=== PATIENT | female | born 1930 | race Hispanic/Latino ===

== ENCOUNTER 2017-10-03 12:15 | Inpatient (IN) | payer MEDICARE ==
[2017-10-03 13:12] LABS: BASO # 0.02 K/mm3 (0.0-2.0); BASO % 0.2 % (0.0-3.0); EOS % 0.1 % (1.5-5.0); GRAN # 8.95 (1.4-6.5); GRAN % 78.9 % (50.0-68.0); HEMATOCRIT 44.5 % (36.0-48.0); LYMPH # 1.6 (1.2-3.4); LYMPH % 14.2 % (22.0-35.0); MEAN CELL VOLUME 82.4 fl (80.0-105.0); MEAN CORPUSCULAR HEMOGLOBIN 28.1 pg (25.0-35.0); MEAN CORPUSCULAR HGB CONC 34.2 g/dl (31.0-37.0); MEAN PLATELET VOLUME 9.4 fl (7.0-11.0); MONO # 0.8 (0.1-0.6); MONO % 6.6 % (1.0-6.0); RED CELL DISTRIBUTION WIDTH 13.8 % (11.5-14.5); WHITE BLOOD COUNT 11.3 10^3/ul (4.5-11.0)
--- NOTE | 2017-10-03 13:23 | ED PDOC ---
Arrival/HPI - General Chief Complaint: Trauma Time Seen by Provider: 10/03/17 12:22 - History of Present Illness Narrative History of Present Illness (Text): 86 year old female with PMhx of Pre diabetes, HLD, Arthritis, urinary incontinence, and anxiety presents with unwitnessed fall. Patient can't remember the mechanism of the fall. She states she got up out of bed then fell. She does admit to hitting the back of her head when she fell but is not tender in that region. HPI and ROS difficult to obtain due to patient's confusion and issues with memory. Additional information was obtained from Son, Daughter, and Daughter in law. Per patient's children, the patient's leg have been progressively weak. Patient is normally ambulatory with a walker, but has been slowing down as of recent. Per children, patient has also seemed slightly more confused than usual. When asked about the fall she stated that she had seizure. Patient did not mention seizure during interview nor does she have history of seizures. She continues to mention her anxiety throughout the interview. ROS POSITIVES: Leg weakness NEGATIVES: Fevers, chills, Headache, Dizziness, blurry vision, chest pain, palpitations, SOB, abdominal pain, n/v/d, constipation, urinary symptoms, PMHx: Pre diabetes, HLD, Arthritis, urinary incontinence, anxiety. PSHx: x 3 Allergies: NKDA Social: Denies tobacco, alcohol, or any ilicit drug use Hos: Denies FamHx: Gout- Father, Breast CA - Mother Meds: Reviewed Time/Duration: 4-6 hours Symptom Onset: Sudden Symptom Course: Unchanged Activities at Onset: Other Context: Standing Past Medical History - Provider Review Nursing Documentation Reviewed: Yes - Cardiac Hx Hypertension: Yes - Endocrine/Metabolic Hx Hypothyroidism: Yes - Psychiatric Hx Anxiety: Yes Hx Substance Use: No - Surgical History Hx Section: Yes Family/Social History - Physician Review Nursing Documentation Reviewed: Yes Family/Social History: Neoplasm/Cancer, Other (Gout) Smoking Status: Never Smoked Hx Alcohol Use: No Hx Substance Use: No Allergies/Home Meds Allergies/Adverse Reactions: Allergies No Known Allergies Allergy (Verified 10/03/17 12:41) Home Medications: Home Meds Medication Instructions Recorded Confirmed Alprazolam [Xanax] 0.5 mg PO DAILY 10/03/17 10/03/17 Colesevelam HCl [Welchol] 625 mg PO DAILY 10/03/17 10/03/17 Levothyroxine [Synthroid] 75 mcg PO DAILY 10/03/17 10/03/17 Review of Systems - Physician Review All systems were reviewed & negative as marked: Yes (As per HPI) - Review of Systems Respiratory: Normal. absent: SOB Cardiovascular: Normal. absent: Chest Pain Physical Exam - Physical Exam Physical Exam Limitations: Other (Confused ) Vital Signs Reviewed: Yes Vital Signs Temp Pulse Resp BP Pulse Ox 10/03/17 15:34 93 H 18 150/92 H 99 10/03/17 12:15 97.8 F 112 H 18 175/87 H 99 Temperature: Afebrile Blood Pressure: Hypertensive Pulse: Tachycardic Respiratory Rate: Normal Appearance: Positive for: Non-Toxic Pain Distress: None Mental Status: Positive for: Confused - Systems Exam Head: Present: Atraumatic, Normocephalic. No: Tenderness, Contusion, Swelling, Ecchymosis, Abrasion Pupils: Present: PERRL Extroacular Muscles: Present: EOMI Conjunctiva: Present: Normal Ears: Present: Normal Mouth: Present: Moist Mucous Membranes Neck: No: MIDLINE TENDERNESS, JVD, Bruit Respiratory/Chest: Present: Clear to Auscultation. No: Respiratory Distress, Accessory Muscle Use, Wheezes, Rales, Rhonchi, Tachypneic Cardiovascular: No: Murmurs, Normal S1, S2 (S3 Heart Sound ) Abdomen: Present: Normal Bowel Sounds. No: Tenderness, Distention Upper Extremity: No: Cyanosis, Edema Lower Extremity: Present: Other (Legs dry and scaly b/l ). No: Edema, CALF TENDERNESS, Cyanosis Neurological: Present: GCS=15, Motor Func Grossly Intact. No: Memory Normal Skin: Present: Other (Diffuse Senile Keratosis and Purpura. ) Lymphatic: Present: Cervical Adenopathy Psychiatric: Present: Alert Medical Decision Making ED Course and Treatment: 86 year old female with PMHx of pre-diabetes, HLD, Arthritis, Urinary Incontinence, and anxiety presents with syncopal episode. --EKG: Shows Sinus tachycardia, RBBB, Left Ant. Fascicular block, LVH with repolarization abnormality --BNP --Cardiac Iso --CK MB% --Magnesium --PT/PTT --UA --B/L pelvic Xray --CXR --Head CT w/o Contrast --Reassess and Disposition Reassessment --CBC: 11.3 WBC Gran # 8.95 Roane # 0.8 --CMP Mg - WNL AST/ALT = 47/41 --Total CK elevated at 494 --CK-MB: Elevated at 4.4 --Troponin 0.04 (Negative) -- BNP = 722 --Total Protein Elevated at 9.0 --B/L pelvic Xray: No fractures or displacement. --CXR: No acute disease --Head CT w/o Contrast: No active Disease --Attending discussed patient with Dr. Metcalf(GI) --Admit to Med/Surg Reassessment Condition: Re-examined, Improving,but remains with symptoms ( Patient had one episode of Non-bloody, Bilious vomiting) - Lab Interpretations Lab Results: 10/03/17 13:00 10/03/17 13:00 Lab Results 10/03/17 13:00: PT 12.1, INR 1.10 H, APTT 30.1 10/03/17 13:00: Magnesium 1.8, Lactate Dehydrogenase 480, Total Creatine Kinase 494 H, CK-MB (CK-2) 4.4 H, CK-MB (CK-2) % Cancelled, Troponin I 0.04, NT-Pro-B Natriuret Pep 722 H 10/03/17 13:00: Sodium 141, Potassium 3.9, Chloride 105, Carbon Dioxide 23, Anion Gap 17, BUN 26 H, Creatinine 1.0, Est GFR ( Amer) > 60, Est GFR ( Non-Af Amer) 52, Random Glucose 132 H, Calcium 10.8 H, Total Bilirubin 0.9, AST 47 H, ALT 41, Alkaline Phosphatase 97, Total Protein 9.0 H, Albumin 4.8, Globulin 4.2, Albumin/Globulin Ratio 1.1 10/03/17 13:00: WBC 11.3 H, RBC 5.40, Hgb 15.2, Hct 44.5, MCV 82.4, MCH 28.1, MCHC 34.2, RDW 13.8, Plt Count 308, MPV 9.4, Gran % 78.9 H, Lymph % (Auto) 14.2 L, Roane % (Auto) 6.6 H, Eos % (Auto) 0.1 L, Baso % (Auto) 0.2, Gran # 8.95 H, Lymph # 1.6, Roane # 0.8 H, Eos # 0.0, Baso # 0.02 I have reviewed the lab results: Yes - RAD Interpretation Radiology Orders: 10/03/17 13:18 HEAD W/O CONTRAST [CT] Stat 10/03/17 13:23 CHEST ONE VIEW [RAD] Stat 10/03/17 14:13 PELVIS ONE VIEW [RAD] Stat Blankbook Forwarder: ED Physician, Radiologist - EKG Interpretation Interpreted by ED Physician: Yes Disposition/Present on Arrival - Present on Arrival Any Indicators Present on Arrival: No History of DVT/PE: No History of Uncontrolled Diabetes: No Urinary Catheter: No History of Decub. Ulcer: No History Surgical Site Infection Following: None - Disposition Have Diagnosis and Disposition been Completed?: Yes Diagnosis: Atypical syncope Disposition Time: 16:43 Patient Plan: Admission Patient Problems: Current Active Problems Problem Status Onset Atypical syncope Acute Condition: STABLE Discharge Instructions (ExitCare): Syncope (ED) Referrals: Tanna Cruz DO [Primary Care Provider] - Follow up with primary Forms: [employer] (Lithuanian)
[2017-10-03 13:24] LABS: ALB/GLOB RATIO 1.1 (1.1-1.8); ALKALINE PHOSPHATASE 97 U/L (38-126); ALT/SGPT 41 U/L (7-56); AST/SGOT 47 U/L (14-36); BILIRUBIN,TOTAL 0.9 mg/dL (0.2-1.3); BLOOD UREA NITROGEN 26 mg/dL (7-21); CALCIUM 10.8 mg/dL (8.4-10.5); CARBON DIOXIDE 23 mmol/L (21-33); CHLORIDE 105 mmol/L (98-107); GFR AFRICAN-AMERICAN > 60; GLUCOSE,RANDOM 132 mg/dL (70-110); POTASSIUM 3.9 mmol/L (3.6-5.0); SODIUM 141 mmol/L (132-148)
[2017-10-03 13:46] LABS: MAGNESIUM 1.8 mg/dL (1.7-2.2)
[2017-10-03 13:53] LABS: TROPONIN I 0.04 ng/mL
[2017-10-03 14:01] LABS: INR 1.1 (0.93-1.08); PARTIAL THROMBOPLASTIN TIME 30.1 Seconds (25.1-36.5)
--- NOTE | 2017-10-03 14:55 | CT ---
PROCEDURE: CT HEAD WITHOUT CONTRAST. HISTORY: FALL COMPARISON: None available. TECHNIQUE: Axial computed tomography images were obtained through the head/brain without intravenous contrast. Radiation dose: Total exam DLP = 869.96 mGy-cm. This CT exam was performed using one or more of the following dose reduction techniques: Automated exposure control, adjustment of the mA and/or kV according to patient size, and/or use of iterative reconstruction technique. FINDINGS: HEMORRHAGE: No intracranial hemorrhage. BRAIN: Diffuse atrophy with prominence of the ventricles and sulci noted. No mass effect or edema. Richard-white matter differentiation appears intact. Please note that MRI with diffusion imaging is more sensitive in the detection of acute ischemic event. VENTRICLES: No hydrocephalus. CALVARIUM: Unremarkable. PARANASAL SINUSES: Unremarkable as visualized. No significant inflammatory changes. MASTOID AIR CELLS: Unremarkable as visualized. No inflammatory changes. OTHER FINDINGS: None. IMPRESSION: No acute intracranial pathology identified.
[2017-10-03 16:42] LABS: PH,URINE 5.5 (4.7-8.0); URINE BILIRUBIN SMALL (NEGATIVE); URINE BLOOD LARGE (NEGATIVE); URINE GLUCOSE (UA) NEGATIVE (NEGATIVE); URINE KETONE 15 mg/dL (NEGATIVE); URINE LEUKOCYTE ESTERASE MODERATE Leu/uL (NEGATIVE); URINE PROTEIN 100 mg/dL (<30 mg/dL); URINE UROBILINOGEN 0.2 E.U./dL (<1 E.U./dL)
--- NOTE | 2017-10-03 16:48 | RAD ---
HISTORY: Fall COMPARISON: None available. TECHNIQUE: Chest, one view. FINDINGS: LUNGS: Biapical pleural thickening. No focal consolidation. Please note that chest x-ray has limited sensitivity for the detection of pulmonary masses. PLEURA: No significant pleural effusion identified. No definite pneumothorax . CARDIOVASCULAR: Heart size appears within normal limits. Ectatic aorta. Atherosclerotic calcifications. OSSEOUS STRUCTURES: Degenerative changes. VISUALIZED UPPER ABDOMEN: Elevation/ eventration of the right hemidiaphragm. OTHER FINDINGS: None. IMPRESSION: Biapical pleural thickening. Atherosclerotic calcifications of the aorta.
--- NOTE | 2017-10-03 16:50 | RAD ---
PROCEDURE: Radiographs of the pelvis. HISTORY: fall COMPARISON: None available. FINDINGS: Emanation limited by habitus. BONES: No acute displaced fracture. JOINTS: No dislocation. The sacroiliac joints appear intact. The pubic symphysis appears unremarkable. OTHER FINDINGS: No significant joint effusion appreciated. Soft tissues appear unremarkable. No evidence of radiopaque foreign body. Pelvic calcifications, likely phleboliths. IMPRESSION: No acute displaced fracture, dislocation, or significant joint effusion identified. If symptoms persist, or if there is continued clinical concern, x-ray follow-up in 7-10 days should be considered.
[2017-10-03 17:02] LABS: URINE APPEARANCE SL CLOUDY (CLEAR); URINE COLOR YELLOW (YELLOW)
[2017-10-03 17:05] LABS: URINE BACTERIA MANY (NEG); URINE EPITHELIAL CELLS 0 - 2 /hpf (0-5); URINE RBC TNTC /hpf (0-2); URINE WBC TNTC /hpf (0-6)
[2017-10-03] MEDS ORDERED: cefTRIAXone 2 GM IN NS 2 GM/100 ML BAG IVPB STA (17:10)
[2017-10-03 21:24] VITALS: BMI 24.9
[2017-10-03] MEDS ORDERED: Influenza Vaccine 60 mcg/0.5 mL SYR (4YR UP) IM ONE (21:25)
[2017-10-03] MEDS ORDERED: Pneumococcal 23-Valent Vaccine IM ONE (21:25)
--- NOTE | 2017-10-03 21:42 | CARD ---
APPROVED REPORT EKG Measurement Heart [id number] <Conclusion> Sinus tachycardia Right bundle branch block Left anterior fascicular block Bifascicular block Left ventricular hypertrophy with repolarization abnormality Cannot rule out Septal infarct, age undetermined Abnormal ECG
[2017-10-04] MEDS: Levothyroxine 75 MCG TAB PO SCH (09:00)
[2017-10-04] MEDS: cefTRIAXone 1 gm 1 GM/100 ML BAG IVPB SCH (10:50)
--- NOTE | 2017-10-04 11:08 | CP.PCM.CON ---
<Etelvina Archibald - Last Filed: 10/04/17 11:04> History of Present Illness - History of Present Illness History of Present Illness: 86 year old female with PMhx of Pre diabetes, HLD, Arthritis, urinary incontinence, and anxiety presents with unwitnessed fall, seen at bedside after podiatry consultation. Patient is accompanied by daughter and states that the patient fell at home yesterday and was brought to the ED. Patient's daughter states that the patient has no pain in her feet. She denies any numbness, burning or tingling in her feet. Patient appears in NAD. Patient denies n/d/c/v/ sob. Review of Systems - Constitutional Constitutional: As Per HPI Past Patient History - Past Social History Smoking Status: Never Smoked - CARDIAC Hx Hypercholesterolemia: Yes Hx Hypertension: Yes - ENDOCRINE/METABOLIC Hx Endocrine Disorders: Yes (pre diabetes) Hx Hypothyroidism: Yes - INTEGUMENTARY Other/Comment: multiple age spots and moles chest, round 1cm growth to r cheek, redness to left cheek left side of face and left neck, dry discolored skin to b/ l arms, bke dry flaky skin toenails on both feet long thick and curled, red dry skin to buttocks - MUSCULOSKELETAL/RHEUMATOLOGICAL Hx Falls: Yes (fell this am) - GENITOURINARY/GYNECOLOGICAL Hx Incontinence: Yes - PSYCHIATRIC Hx Substance Use: No - SURGICAL HISTORY Hx Surgeries: Yes (c section x3) Meds Allergies/Adverse Reactions: Allergies Allergy/AdvReac Type Severity Reaction Status Date / Time No Known Allergies Allergy Verified 10/03/17 12:41 - Medications Medications: Current Medications Alprazolam (Xanax) 0.5 mg PO DAILY PRN; Protocol PRN Reason: Anxiety Last Admin: 10/04/17 08:18 Dose: 0.5 mg Ceftriaxone Sodium (Rocephin 1 Gram Ivpb (D5w)) 1 gm in 100 mls @ 200 mls/hr IVPB DAILY AUDIE PRN Reason: Protocol Levothyroxine Sodium (Synthroid) 75 mcg PO DAILY AUDIE Last Admin: 10/04/17 09:00 Dose: 75 mcg Colesevelam 625 Mg 625 mg PO BRK AUDIE Physical Exam - Constitutional Appears: Well, Non-toxic, No Acute Distress - Extremities Exam Additional comments: Vasc: DP 2/4, PT 14 b/l, TG wnl, CFT < 3 sec to all digits neuro: grossly diminished derm: nails are elongated and thickened x 10, no edema, no erythema, varicosities and telangectasias noted bilaterally to dorsal feet, no open lesions, no hyperkeratotic lesions, no ascending cellulitis, no acute clinical signs of infection ortho: mild pain on palpation to nails x 10 - Neurological Exam Neurological exam: Alert, Oriented x3 Results - Vital Signs Recent Vital Signs: Last Vital Signs Temp 97.9 F 10/04/17 06:00 Pulse 89 10/04/17 06:00 Resp 19 10/04/17 06:00 BP 158/88 H 10/04/17 06:00 Pulse Ox 98 10/04/17 06:00 - Labs Result Diagrams: 10/03/17 13:00 10/03/17 13:00 Assessment & Plan - Assessment and Plan (Free Text) Assessment: 86 y/o female seen at bedside regarding painful elongated toenails Plan: patient seen and evaluated at bedside discussed in detail with attending Dr. Arthur nail debridement to be performed tomorrow educated patient importance of glucose control, diabetic foot care patient demonstrated understanding of treatment plan podiatry will continue to monitor while patient remains in house <Devin Arthur - Last Filed: 10/08/17 08:52> Results - Vital Signs Recent Vital Signs: Last Vital Signs Temp 97.5 F L 10/06/17 07:30 Pulse 73 10/06/17 10:03 Resp 20 10/06/17 07:30 BP 138/58 L 10/06/17 10:03 Pulse Ox 96 10/06/17 07:30 - Labs Result Diagrams: 10/03/17 13:00 10/03/17 13:00 Attending/Attestation - Attestation I have personally seen and examined this patient.: Yes I have fully participated in the care of the patient.: Yes I have reviewed all pertinent clinical information: Yes
--- NOTE | 2017-10-04 21:25 | HP ---
CHIEF COMPLAINT AND HISTORY OF PRESENT ILLNESS: This is an 86-year-old female who is coming into the hospital with complaints of weakness. She had a fall. The patient had no complaints of any chest pain or shortness of breath, no headaches. There is a question whether the patient had syncopal episode. She is not able to give much information. ALLERGIES: NO KNOWN DRUG ALLERGIES. HOME MEDICATIONS: Xanax, WelChol, Synthroid. PAST MEDICAL HISTORY: Hypothyroidism, dyslipidemia, anxiety. SOCIAL HISTORY: No smoking or drinking. FAMILY HISTORY: Noncontributory. PHYSICAL EXAMINATION: VITAL SIGNS: Temperature is 97.8, pulse of 112, respirations 18, blood pressure is 175/87, O2 saturation 99%, repeat pulses of 112. Patient has a height of 5 feet 4 inches, weight is 150 pounds, BMI is 25. GENERAL: The patient lying in bed, uncomfortable, and in no acute distress. HEENT: Atraumatic and normocephalic. Anicteric sclerae. Moist mucosa. Jaconita conjunctivae. No oral lesions. NECK: No JVD, anterior and posterior adenopathy, thyromegaly, or bruits. CARDIOVASCULAR: S1 and S2 regular. No murmur, rubs, or gallop. LUNGS: Clear to auscultation bilaterally. No wheezes, rales, or rhonchi. ABDOMEN: Bowel sounds are positive. Soft, nontender and nondistended. No hepatosplenomegaly. No rebound and no guarding. EXTREMITIES: No cyanosis, clubbing, or edema. NEUROLOGIC: No facial asymmetry. Tongue is midline. No uvula deviation. PSYCHIATRIC: Patient is alert and awake, but difficult to know if the patient is oriented. She is drowsy. GENITOURINARY: No CVA tenderness. VASCULAR: 2+ pulses in the carotid pulses and pedal pulses. SKIN: No erythema or nodules SPINE: Shows normal curvature. LABORATORY DATA: White count of 11.3. Rest of the labs have been reviewed. Calcium is 10.8, troponin is 0.04. Urine shows proteins are 100, esterase is moderate, blood is large. Chest x-ray done shows bi-apical pleural thickening. Pelvic x-ray shows no acute displaced fracture. EKG shows sinus tachycardia of 108, right bundle branch block. ASSESSMENT: 1. Fall. 2. Possible syncope. 3. Leukocytosis. 4. Hypercalcemia. 5. Hypothyroidism. PLAN: The patient is currently drowsy. She was unable to sleep overnight according to the nurse. The patient was given Benadryl as well. If it is difficult to get a full evaluation, she is going to be admitted to the hospital for evaluation for fall. We will get to see the patient. Patient will need Podiatry to clip her toenails. The patient is on Synthroid for hypothyroidism, is on Xanax as needed. I will repeat the patient's TSH, I will get a PTH as well. She is going to be on a regular diet. She is going to need physical therapy. She has urine cultures that have been ordered. I will continue antibiotics for this as well. Margarito Clayton MD
[2017-10-05] MEDS ORDERED: COLESEVELAM 625 MG PO SCH (08:00)
[2017-10-05] MEDS: Levothyroxine 75 MCG TAB PO SCH ×2 (08:12→11:40)
--- NOTE | 2017-10-05 09:15 | CP.PCM.CON ---
<Eleanor Eisenberg - Last Filed: 10/05/17 15:41> History of Present Illness - History of Present Illness History of Present Illness: PGY-2 Neurology consult note for Dr. Caputo's service 86 year old female with past medical history of Pre diabetes, HLD, Arthritis, urinary incontinence, and anxiety presents with unwitnessed fall. Patient can not remember the mechanism of the fall. She states she got up out of bed then fell. She admits to hitting the back of her head agiants the wall when she fell but denies any pain. Patient is alert but not oriented and confused. Remainder of HPI obtained from ED note. Patient was brought in by son, daughter, and daughter in law. Per patient's children, the patient's leg have been progressively weak. Patient is normally ambulatory with a walker, but has been slowing down as of recent. Per children, patient has also seemed slightly more confused than usual. HPI and ROS difficult to obtain due to patient's confusion and issues with memory. PMH: Pre diabetes, HLD, Arthritis, urinary incontinence, anxiety. PSH: x 3 Allergies: NKDA Social history: Denies tobacco, alcohol, or any ilicit drug use FamHx: Gout- Father, Breast CA - Mother allergy: NKDA Meds: Reviewed Review of Systems - Review of Systems Systems not reviewed;Unavailable: Altered Mental Status Past Patient History - Past Social History Smoking Status: Never Smoked - CARDIAC Hx Hypercholesterolemia: Yes Hx Hypertension: Yes - ENDOCRINE/METABOLIC Hx Diabetes Mellitus Type 2: Yes - INTEGUMENTARY Other/Comment: multiple age spots and moles chest, round 1cm growth to r cheek, redness to left cheek left side of face and left neck, dry discolored skin to b/ l arms, bke dry flaky skin toenails on both feet long thick and curled, red dry skin to buttocks - MUSCULOSKELETAL/RHEUMATOLOGICAL Hx Falls: Yes (fell this am) - GENITOURINARY/GYNECOLOGICAL Hx Incontinence: Yes - PSYCHIATRIC Hx Substance Use: No - SURGICAL HISTORY Hx Surgeries: Yes (c section x3) Meds Allergies/Adverse Reactions: Allergies Allergy/AdvReac Type Severity Reaction Status Date / Time No Known Allergies Allergy Verified 10/03/17 12:41 - Medications Medications: Current Medications Alprazolam (Xanax) 0.5 mg PO DAILY PRN; Protocol PRN Reason: Anxiety Last Admin: 10/04/17 21:48 Dose: 0.5 mg Ceftriaxone Sodium (Rocephin 1 Gram Ivpb (D5w)) 1 gm in 100 mls @ 200 mls/hr IVPB DAILY AUDIE PRN Reason: Protocol Last Admin: 10/04/17 10:50 Dose: 200 mls/hr Levothyroxine Sodium (Synthroid) 75 mcg PO DAILY [facility] Last Admin: 10/05/17 08:12 Dose: 75 mcg Colesevelam 625 Mg 625 mg PO BRK [facility] Last Admin: 10/05/17 08:11 Dose: Not Given Physical Exam - Constitutional Appears: Well, No Acute Distress - Head Exam Head Exam: ATRAUMATIC, NORMAL INSPECTION, NORMOCEPHALIC - Eye Exam Eye Exam: EOMI, Normal appearance - ENT Exam ENT Exam: Mucous Membranes Moist - Respiratory Exam Respiratory Exam: Clear to Auscultation Bilateral, NORMAL BREATHING PATTERN. absent: Wheezes, Respiratory Distress - Cardiovascular Exam Cardiovascular Exam: REGULAR RHYTHM, +S1, +S2. absent: Tachycardia, Systolic Murmur - Neurological Exam Neurological exam: Alert, CN II-XII Intact - Expanded Neurological Exam Expanded Cranial nerves: EOM's Intact: Normal, Nystagmus: Normal, Tongue Deviation: Normal Cerebellar Function: Finger to Nose: Normal Neuro motor strength exam: Left Upper Extremity: 5, Right Upper Extremity: 5, Left Lower Extremity: 5, Right Lower Extremity: 5 Results - Vital Signs Recent Vital Signs: Last Vital Signs Temp 98.4 F 10/05/17 06:00 Pulse 62 10/05/17 06:00 Resp 19 10/05/17 06:00 BP 133/60 10/05/17 06:00 Pulse Ox 98 10/05/17 06:00 - Labs Result Diagrams: 10/03/17 13:00 10/03/17 13:00 Assessment & Plan - Assessment and Plan (Free Text) Assessment: 86 year old female with past medcial history of Pre diabetes, HLD, Arthritis, urinary incontinence, and anxiety presents with unwitnessed fall and confusion secondary to moderate to severe cognitive impairment 1. cognitive impairment 2. UTI 3. HTN - head CT negative - positive UA - control blood pressure - start namanda 5mg BID - thiamine 100mg daily - will get B12, TSH - avoid sedating medications to prevent deterioration of mental status - monitor electrolytes correct as needed - PT/OT - consider possible subacute rehab - follow up outpatient case discussed and reviewed with attending, Dr. Caputo <Champ Caputo - Last Filed: 10/05/17 23:02> Meds - Medications Medications: Current Medications Alprazolam (Xanax) 0.5 mg PO DAILY PRN; Protocol PRN Reason: Anxiety Last Admin: 10/05/17 22:30 Dose: 0.5 mg Amlodipine Besylate (Norvasc) 5 mg PO DAILY [facility] Last Admin: 10/05/17 11:42 Dose: 5 mg Ceftriaxone Sodium (Rocephin 1 Gram Ivpb (D5w)) 1 gm in 100 mls @ 200 mls/hr IVPB DAILY AUDIE PRN Reason: Protocol Last Admin: 10/05/17 11:43 Dose: 200 mls/hr Levothyroxine Sodium (Synthroid) 75 mcg PO 0600 [facility] Memantine (Namenda) 5 mg PO BID [facility] Last Admin: 10/05/17 17:10 Dose: 5 mg Metoprolol Tartrate (Lopressor) 25 mg PO BID [facility] Last Admin: 10/05/17 17:09 Dose: 25 mg Colesevelam 625 Mg 625 mg PO BRK [facility] Last Admin: 10/05/17 08:11 Dose: Not Given Thiamine HCl (Vitamin B1 Tab) 100 mg PO DAILY [facility] Last Admin: 10/05/17 11:43 Dose: 100 mg Results - Vital Signs Recent Vital Signs: Last Vital Signs Temp 98.1 F 10/05/17 17:52 Pulse 96 H 10/05/17 17:52 Resp 20 10/05/17 17:52 BP 137/72 10/05/17 17:52 Pulse Ox 98 10/05/17 06:00 - Labs Result Diagrams: 10/03/17 13:00 10/03/17 13:00 Labs: Laboratory Results - last 24 hr 10/04/17 10/05/17 10/05/17 10:00 12:20 12:20 Vitamin B12 866 TSH 3rd Generation 1.70 PTH Intact Whole Molec 31 Attending/Attestation - Attestation I have personally seen and examined this patient.: Yes I have fully participated in the care of the patient.: Yes I have reviewed all pertinent clinical information: Yes
[2017-10-05] MEDS: cefTRIAXone 1 gm 1 GM/100 ML BAG IVPB SCH (11:43)
[2017-10-05 12:36] VITALS: RESP 20
--- NOTE | 2017-10-05 16:53 | CP.PCM.PN ---
<Renetta Merida - Last Filed: 10/05/17 16:50> Subjective - Date & Time of Evaluation Date of Evaluation: 10/05/17 Time of Evaluation: 16:50 - Subjective Subjective: Podiatry Progress Note - Dr. Fu 86 year old female with PMhx of Pre diabetes, HLD, Arthritis, urinary incontinence, and anxiety presents with unwitnessed fall, seen at bedside for painful elongated nails. Patient states she is unable to trim her nails herself. Denies N/V/F/D/C/SOB/calf pain. Objective - Vital Signs/Intake and Output Vital Signs (last 24 hours): Temp Pulse Resp BP Pulse Ox 98.4 F 78 20 141/79 98 10/05/17 06:00 10/05/17 12:00 10/05/17 12:00 10/05/17 12:00 10/05/17 06:00 Intake and Output: 10/05/17 10/05/17 06:59 18:59 Intake Total 240 Output Total 300 Balance -60 - Medications Medications: Current Medications Alprazolam (Xanax) 0.5 mg PO DAILY PRN; Protocol PRN Reason: Anxiety Last Admin: 10/04/17 21:48 Dose: 0.5 mg Amlodipine Besylate (Norvasc) 5 mg PO DAILY [facility] Last Admin: 10/05/17 11:42 Dose: 5 mg Ceftriaxone Sodium (Rocephin 1 Gram Ivpb (D5w)) 1 gm in 100 mls @ 200 mls/hr IVPB DAILY [facility] PRN Reason: Protocol Last Admin: 10/05/17 11:43 Dose: 200 mls/hr Levothyroxine Sodium (Synthroid) 75 mcg PO DAILY [facility] Last Admin: 10/05/17 11:40 Dose: Not Given Memantine (Namenda) 5 mg PO BID [facility] Metoprolol Tartrate (Lopressor) 25 mg PO BID [facility] Colesevelam 625 Mg 625 mg PO BRK [facility] Last Admin: 10/05/17 08:11 Dose: Not Given Thiamine HCl (Vitamin B1 Tab) 100 mg PO DAILY [facility] Last Admin: 10/05/17 11:43 Dose: 100 mg - Labs Labs: PT 12.1 SECONDS (9.4-12.5) 10/03/17 13:00 INR 1.10 (0.93-1.08) H 10/03/17 13:00 APTT 30.1 Seconds (25.1-36.5) 10/03/17 13:00 - Constitutional Appears: Well, Non-toxic, No Acute Distress, Unkempt - Extremities Exam Additional comments: Vasc: DP 2/4, PT 14 b/l, TG wnl, CFT < 3 sec to all digits neuro: grossly diminished derm: nails are elongated and thickened x 10, no edema, no erythema, varicosities and telangectasias noted bilaterally to dorsal feet, no open lesions, no hyperkeratotic lesions, no ascending cellulitis, no acute clinical signs of infection ortho: mild pain on palpation to nails x 10 - Neurological Exam Neurological Exam: Alert, Awake, Oriented x3 - Psychiatric Exam Psychiatric exam: Normal Affect, Normal Mood Assessment and Plan - Assessment and Plan (Free Text) Assessment: 86 y/o female seen at bedside regarding painful elongated toenails Plan: Patient seen and evaluated at bedside Discussed with attending, Dr. Fu Nails 1-5 b/l debrided in thickness and length without incident Stable per podiatry standpoint Podiatry to sign off at this time Thank you for the consult, please reconsult podiatry as needed <Nan Fu - Last Filed: 10/07/17 17:16> Objective - Vital Signs/Intake and Output Vital Signs (last 24 hours): Temp Pulse Resp BP Pulse Ox 97.5 F L 73 20 138/58 L 96 10/06/17 07:30 10/06/17 10:03 10/06/17 07:30 10/06/17 10:03 10/06/17 07:30 - Labs Labs: PT 12.1 SECONDS (9.4-12.5) 10/03/17 13:00 INR 1.10 (0.93-1.08) H 10/03/17 13:00 APTT 30.1 Seconds (25.1-36.5) 10/03/17 13:00
--- NOTE | 2017-10-05 17:34 | CARD ---
APPROVED REPORT EXAM: Two-dimensional and M-mode echocardiogram with Doppler and color Doppler. INDICATION Syncope 2D DIMENSIONS Left Atrium (2D)3.5 (1.6-4.0cm)IVSd1.2 (0.7-1.1cm) LVDd3.8 (3.9-5.9cm)PWd1.4 (0.7-1.1cm) LVDs2.6 (2.5-4.0cm)FS (%) 31.3 % LVEF (%)59.9 (>50%) M-Mode DIMENSIONS Aortic Root2.80 (2.2-3.7cm)Aortic Cusp Exc.1.60 (1.5-2.0cm) Aortic Valve AoV Peak Dxyjbvce462.0cm/Jose Peak GR.9mmHg Mitral Valve MV E Ywqkopat19.1cm/sMV A Gelbrgpr43.7cm/sE/A ratio0.6 TDI E/Lateral E'0.0E/Medial E'0.0 Tricuspid Valve TR Peak Ruamtzkr255wx/sRAP [id number] Peak Gr.15mmHg [id number] LEFT VENTRICLE The left ventricle is normal size. There is mild concentric left ventricular hypertrophy. The left ventricular function is normal.EF-55-60% There is normal LV segmental wall motion. Transmitral Doppler flow pattern is Grade III-reversible restrictive diastolic dysfunction. No left ventricle thrombus noted on this study. There is no ventricular septal defect visualized. There is no left ventricular aneurysm. There is no mass noted in the left ventricle. RIGHT VENTRICLE The right ventricle is normal size. There is normal right ventricular wall thickness. The right ventricular systolic function is normal. ATRIA The left atrium size is normal. The right atrium size is normal. The interatrial septum is intact with no evidence for an atrial septal defect. AORTIC VALVE The aortic valve is thickened but opens well. The aortic valve is mildly to moderately sclerotic. There is mild aortic regurgitation. There is no aortic valvular stenosis. There is no aortic valvular vegetation. MITRAL VALVE The mitral valve is thickened but opens well. Mitral annular calcification is mild. Mitral regurgitation is trace to mild. There is no mitral valve stenosis. There is no evidence of mitral valve prolapse. TRICUSPID VALVE The tricuspid valve leaflets are thickened , but open well. There is trace to mild tricuspid regurgitation.RVSP-25 mmof hg. There is no tricuspid valve stenosis. There is no tricuspid valve prolapse or vegetation. PULMONIC VALVE The pulmonary valve is normal in structure. There is trace pulmonic valvular regurgitation. There is no pulmonic valvular stenosis. GREAT VESSELS The aortic root is normal in size. The ascending aorta is normal in size. The pulmonary artery is normal. The IVC is normal in size and collapses >50% with inspiration. PERICARDIAL EFFUSION There is no pleural effusion. There is no pericardial effusion. <Conclusion> Normal Chamber SIZE. LVH. EF-55-60% There is mild aortic regurgitation. Mitral regurgitation is trace to mild. There is trace to mild tricuspid regurgitation.RVSP-25 mmof hg. The IVC is normal in size and collapses >50% with inspiration. There is no pericardial effusion.
[2017-10-05] MEDS ORDERED: Levothyroxine 75 MCG TAB PO SCH (19:04)
--- NOTE | 2017-10-05 19:28 | PN ---
DATE: SUBJECTIVE: The patient is an 86-year-old patient of Dr. Tanna Cruz, was brought to emergency room because of a recent fall. She hit her head and according to family, has been increasingly weak, difficulty walking. She is extremely confused, disoriented with agitation at times. PHYSICAL EXAMINATION: GENERAL: She is awake and alert, communicative, but confused and disoriented. VITAL SIGNS: She is afebrile, pulse 62, respirations 19, blood pressure 141/79. LUNGS: Bilateral fair airflow. No rhonchi or crackle. HEART: S1 and S2 audible. ABDOMEN: Soft, nontender. No rebound. No guarding. NEUROLOGIC: She is awake and alert, but confused and disoriented. LABORATORY DATA: Her CPK is 494, MB is 4.4, and BNP is 722. LFT's are within normal limits, otherwise. Urine culture shows mixed mary, probably contaminated. CT scan of the head is unremarkable. X-ray of pelvis and chest shows no acute displacement, fracture, or dislocation. ASSESSMENT: 1. Deconditioning and difficulty walking. 2. Dementia. 3. Status post fall. 4. Biapical pleural thickening. 5. Bilateral knee osteoarthritis. 6. History of hypertension. PLAN: We will repeat her urine analysis. She is hemodynamically stable. We will discontinue telemetry. Patient is deconditioned, high risk for fall, unstable gait. She needs subacute rehab. We will discuss with social service. Estephania Kumar MD
--- NOTE | 2017-10-06 08:07 | CON ---
DATE: 10/05/2017 REASON FOR THE CONSULTATION: Follow up cardiac evaluation, status post fall, rule out syncope. BRIEF CLINICAL HISTORY: An 86-year-old female with past medical history of hypothyroidism, hyperlipidemia, anxiety disorder, complained of generalized weakness, she fell down, brought here. Denies any chest pain, denies any shortness of breath, denies any palpitation. PAST MEDICAL HISTORY: Significant for hypothyroidism, hyperlipidemia, and anxiety disorder. ALLERGIES: NO KNOWN DRUG ALLERGIES. CURRENT MEDICATIONS: The patient is on Xanax, Welchol, and Synthroid. SOCIAL HISTORY: Denies any history of alcohol abuse. FAMILY HISTORY: Noncontributory. REVIEW OF SYSTEMS: As per HPI. PHYSICAL EXAMINATION: VITAL SIGNS: Temperature afebrile, heart rate 66, blood pressure 141/79. HEENT: PERRLA. Extraocular muscles are intact. NECK: Supple. No carotid bruit or thyromegaly. CHEST: Clear to auscultation. HEART: S1 and S2 regular. ABDOMEN: Soft. EXTREMITIES: Clubbing and cyanosis negative. LABORATORY DATA: Blood workup as follows: WBC 11.7, hemoglobin 15.2, hematocrit 44.5, platelet count 308. Chemistry shows sodium 141, potassium 3.9, chloride of 105, carbon dioxide 23, anion gap of 20, BUN 26, and creatinine 1.0. IMPRESSION: Status post fall, hypertension, hypothyroidism, generalized weakness, on Synthroid. EKG showed normal sinus tachycardia, left anterior hemiblock, right bundle branch block, bifascicular block. Heart rate was 130 on EKG, sinus tachycardia. RECOMMENDATIONS: We will get orthostatic hypotension, echo to rule out any structural heart disease. Continue amlodipine. We will put low-dose beta-paolo to prevent tachycardia. We will follow with you. If she remains stable, we will discontinue telemetry. Awaiting for orthostatic to check for the blood pressure. We will follow with you. If orthostatic remain stable, we will discontinue telemetry. We will review the echo when it is done. Thank you Dr. Kumar/Dr. Clayton for providing me the opportunity in taking care of the patient, Barb Thorpe. Elidia Antoine MD
[2017-10-06 08:18] LABS: FREE T4 1.61 ng/dL (0.78-2.19)
[2017-10-06 08:32] LABS: THYROID STIMULATING HORMONE 1.88 mIU/mL (0.46-4.68)
[2017-10-06 09:49] VITALS: BP 138/58; PULSE 73; TEMP 97.5; O2SAT 96
[2017-10-06] MEDS: cefTRIAXone 1 gm 1 GM/100 ML BAG IVPB SCH (10:04)
--- NOTE | 2017-10-06 10:12 | CP.PCM.PN ---
<Eleanor Eisenberg - Last Filed: 10/06/17 16:06> Subjective - Date & Time of Evaluation Date of Evaluation: 10/06/17 Time of Evaluation: 10:11 - Subjective Subjective: PGY-2 Neurology progress note for Dr. Caputo's service Patient seen and examined at bedside. No acute distress, patient is alert but confused. She denies any pain, dizziness, headache, sob. Objective - Vital Signs/Intake and Output Vital Signs (last 24 hours): Temp Pulse Resp BP Pulse Ox 97.5 F L 73 20 138/58 L 96 10/06/17 07:30 10/06/17 07:30 10/06/17 07:30 10/06/17 07:30 10/06/17 07:30 Intake and Output: 10/06/17 10/06/17 06:59 18:59 Intake Total 0 Balance 0 - Medications Medications: Current Medications Alprazolam (Xanax) 0.5 mg PO DAILY PRN; Protocol PRN Reason: Anxiety Last Admin: 10/05/17 22:30 Dose: 0.5 mg Amlodipine Besylate (Norvasc) 5 mg PO DAILY [facility] Last Admin: 10/05/17 11:42 Dose: 5 mg Ceftriaxone Sodium (Rocephin 1 Gram Ivpb (D5w)) 1 gm in 100 mls @ 200 mls/hr IVPB DAILY [facility] PRN Reason: Protocol Last Admin: 10/05/17 11:43 Dose: 200 mls/hr Levothyroxine Sodium (Synthroid) 75 mcg PO 0600 [facility] Last Admin: 10/06/17 06:33 Dose: 75 mcg Memantine (Namenda) 5 mg PO BID [facility] Last Admin: 10/05/17 17:10 Dose: 5 mg Metoprolol Tartrate (Lopressor) 25 mg PO BID [facility] Last Admin: 10/05/17 17:09 Dose: 25 mg Colesevelam 625 Mg 625 mg PO BRK [facility] Last Admin: 10/05/17 08:11 Dose: Not Given Thiamine HCl (Vitamin B1 Tab) 100 mg PO DAILY [facility] Last Admin: 10/05/17 11:43 Dose: 100 mg - Labs Labs: PT 12.1 SECONDS (9.4-12.5) 10/03/17 13:00 INR 1.10 (0.93-1.08) H 10/03/17 13:00 APTT 30.1 Seconds (25.1-36.5) 10/03/17 13:00 - Constitutional Appears: No Acute Distress, Unkempt - Head Exam Head Exam: ATRAUMATIC, NORMAL INSPECTION, NORMOCEPHALIC - Eye Exam Eye Exam: EOMI, Normal appearance - ENT Exam ENT Exam: Mucous Membranes Moist - Respiratory Exam Respiratory Exam: Clear to Ausculation Bilateral, NORMAL BREATHING PATTERN. absent: Respiratory Distress - Cardiovascular Exam Cardiovascular Exam: REGULAR RHYTHM - Neurological Exam Neurological Exam: Alert, Awake, CN II-XII Intact. absent: Oriented x3 Neuro motor strength exam: Left Upper Extremity: 5, Right Upper Extremity: 5, Left Lower Extremity: 5, Right Lower Extremity: 5 - Skin Skin Exam: Dry, Intact, Normal Color, Warm Assessment and Plan - Assessment and Plan (Free Text) Assessment: 86 year old female with past medical history of Pre diabetes, HLD, Arthritis, urinary incontinence, and anxiety presents with unwitnessed fall and confusion secondary to moderate to severe cognitive impairment 1. cognitive impairment 2. UTI 3. HTN - head CT negative - positive UA, on ceftriaxone - control blood pressure - start namanda 5mg BID - thiamine 100mg daily - B12, TSH and free T4 within normal limits - carotid US showed 20-39% stenosis of proximal ICA - avoid sedating medications to prevent deterioration of mental status - monitor electrolytes correct as needed - PT/OT - consider possible subacute rehab - follow up outpatient Thank you for the consult case discussed and reviewed with attending, Dr. Caputo <Champ Caputo - Last Filed: 10/06/17 17:05> Objective - Vital Signs/Intake and Output Vital Signs (last 24 hours): Temp Pulse Resp BP Pulse Ox 97.5 F L 73 20 138/58 L 96 10/06/17 07:30 10/06/17 10:03 10/06/17 07:30 10/06/17 10:03 10/06/17 07:30 Intake and Output: 10/06/17 10/06/17 06:59 18:59 Intake Total 0 Balance 0 - Labs Labs: PT 12.1 SECONDS (9.4-12.5) 10/03/17 13:00 INR 1.10 (0.93-1.08) H 10/03/17 13:00 APTT 30.1 Seconds (25.1-36.5) 10/03/17 13:00 Attending/Attestation - Attestation I have personally seen and examined this patient.: Yes I have fully participated in the care of the patient.: Yes I have reviewed all pertinent clinical information, including history, physical exam and plan: Yes
--- NOTE | 2017-10-06 12:07 | US ---
PROCEDURE: Bilateral carotid artery duplex ultrasound HISTORY: Carotid stenosis syncope PHYSICIAN(S): Maxwell Short MD. TECHNIQUE: Duplex sonography and color-flow Doppler were used to evaluate the carotid bifurcations and limited segments of the vertebral arteries bilaterally. FINDINGS: There is mild smooth heterogeneous plaque noted at the carotid bifurcations bilaterally. The peak systolic velocity in the proximal right internal carotid artery is 91 cm/sec. This corresponds to a 20 to 39% proximal right ICA stenosis. Normal systolic velocities are noted in the proximal right external carotid artery. There is antegrade flow in the right vertebral artery. The peak systolic velocity in the proximal left internal carotid artery is 66 cm/sec. This corresponds to a 20 to 39% proximal left ICA stenosis. Normal systolic velocities are noted in the proximal left external carotid artery. There is antegrade flow in the left vertebral artery. IMPRESSION: 1. Bilateral 20-39% proximal ICA stenoses. 2. Antegrade flow in both vertebral arteries.
--- NOTE | 2017-10-06 12:45 | PN ---
DATE: 10/06/2017 REASON FOR CONSULTATION: Cardiac evaluation, status post fall, rule out syncope. SUBJECTIVE: The patient denies any chest pain, shortness of breath, or any palpitation. She is lying flat in the bed. OBJECTIVE/PHYSICAL EXAMINATION: As follows: GENERAL: Not in apparent distress. VITAL SIGNS: Temperature is afebrile, heart rate is 73, and blood pressure is 138/58. HEENT: PERRLA intact. NECK: Supple. No carotid bruit or thyromegaly. CHEST: Clear to auscultation. HEART: S1 and S2 regular. ABDOMEN: Soft. EXTREMITIES: Clubbing and cyanosis negative. LABORATORY DATA: Blood workup as follows: WBC of 11.9, hemoglobin of 15.2, hematocrit of 44.5, and platelet count of 308. Chemistry shows sodium of 141, potassium of 3.9, chloride of 105, carbon dioxide of 23, anion gap of 17, BUN of 26, and creatinine of 1.0. TSH is 1.88. IMPRESSION: Status post fall, rhabdomyolysis, CPK 497, elevated MB, status post fall, try to attempt orthostatic, but she cannot stand up, so orthostatic was not done. History of hypothyroidism, history of hyperlipidemia, and severe anxiety disorder. The patient had echocardiography done yesterday that revealed normal chamber size with ejection fraction of 55% to 60%, mild aortic regurgitation, [id number] mitral regurgitation, and [id number] tricuspid regurgitation. RECOMMENDATIONS: Continue current treatment including metoprolol 25 mg b.i.d. Continue amlodipine. Continue antibiotic. No significant structural heart disease noted. We will follow with you. Thank you Dr. Kumar for providing us the opportunity in taking care of the patient, Barb Thorpe. Elidia Antoine MD cc: Estephania Kumar MD
[2017-10-06] MEDS ORDERED: Amoxicillin-Clav 875-125 mg Tab PO SCH (22:00)
--- NOTE | 2017-10-07 12:59 | PQF GENQUE ---
10/07/17 Dr. Clayton, Any etiology found for syncope? Thank you. no etiology for syncope Clarification of your documentation is requested to better reflect the severity of illness and intensity of treatment of your patient. Indicators present [] Specify: [] [] Specify: [] [] Specify: [] [] Specify: [] Location in the medical record that reflects the above clinical findings: [] Treatment Provided: [] PHYSICIAN'S RESPONSE Based on your medical judgment of the clinical indicators outlined above please clarify the following: [] Practitioner response [] If unable to determine, please check the box, sign and date. Present On Admission (POA) Indicator: [] Present at the time of admission [] Not present at the time of admission [] Clinically Undetermined In responding to this query, please exercise your independent professional judgment. The fact that a question is asked does not imply that any particular answer is desired or expected. Thank you for your clarification on this documentation. If you have any questions please call:[ ] * Thank you, [ ] trials manager MARITZA
--- NOTE | 2017-10-08 08:45 | DS ---
HISTORY OF PRESENT ILLNESS: The patient is an 86-year-old seen and examined, confused, disoriented, has difficulty walking. She states she is very picky to eat, does not like food that was given. PHYSICAL EXAMINATION: VITAL SIGNS: She is afebrile, pulse 73, respirations 20 and blood pressure 138/58. LUNGS: Bilateral good air flow. No rhonchi or crackle. HEART: S1 and S2 audible. ABDOMEN: Soft and nontender. No rebound. No guarding. NEUROLOGIC: She is awake and alert, but confused and disoriented. LABORATORY EXAMINATION: Her TSH is 1.88. She has carotid Doppler done that is unremarkable. ASSESSMENT: 1. Status post fall. 2. Generalized weakness. 3. Dementia. 4. Hyperlipidemia. 5. Anxiety disorder. PLAN: The patient is clinically stable, needs physical therapy. Since she is deconditioned and has a history of multiple falls, she is being transferred to subacute rehab, where she will be followed by the . Estephania Kumar MD
== END 2017-10-06 16:04 | DRG 312 ==
LOC: ED 12:15 → ERH 16:35 → 2RSO 18:46 → 5RSO 10-05 23:03
PROVIDERS: ADMIT Internal Medicine; ATTEND Internal Medicine
PROC: 0HBRXZZ Excision of Toe Nail, External Approach (ICD-10-PCS; principal; 2017-10-05)
PROC: 0HBRXZZ Excision of Toe Nail, External Approach (ICD-10-PCS; 2017-10-05)
PROC: 0HBRXZZ Excision of Toe Nail, External Approach (ICD-10-PCS; 2017-10-05)
PROC: 0HBRXZZ Excision of Toe Nail, External Approach (ICD-10-PCS; 2017-10-05)
PROC: 0HBRXZZ Excision of Toe Nail, External Approach (ICD-10-PCS; 2017-10-05)
PROC: 0HBRXZZ Excision of Toe Nail, External Approach (ICD-10-PCS; 2017-10-05)
PROC: 0HBRXZZ Excision of Toe Nail, External Approach (ICD-10-PCS; 2017-10-05)
PROC: 0HBRXZZ Excision of Toe Nail, External Approach (ICD-10-PCS; 2017-10-05)
PROC: 0HBRXZZ Excision of Toe Nail, External Approach (ICD-10-PCS; 2017-10-05)
PROC: 0HBRXZZ Excision of Toe Nail, External Approach (ICD-10-PCS; 2017-10-05)
DX: R55 Syncope and collapse (principal); R56.9 Unspecified convulsions; M62.82 Rhabdomyolysis; E83.52 Hypercalcemia; I08.3 Combined rheumatic disorders of mitral, aortic and tricuspid valves; I45.2 Bifascicular block; N39.0 Urinary tract infection, site not specified; W19.XXXA Unspecified fall, initial encounter; F03.90 Unspecified dementia, unspecified severity, without behavioral disturbance, psychotic disturbance, mood disturbance, and anxiety; I45.10 Unspecified right bundle-branch block; E03.9 Hypothyroidism, unspecified; E78.00 Pure hypercholesterolemia, unspecified; E78.5 Hyperlipidemia, unspecified; F41.9 Anxiety disorder, unspecified; I10 Essential (primary) hypertension; K59.00 Constipation, unspecified; M10.9 Gout, unspecified; M17.0 Bilateral primary osteoarthritis of knee; Y92.009 Unspecified place in unspecified non-institutional (private) residence as the place of occurrence of the external cause; Z80.3 Family history of malignant neoplasm of breast; R32 Unspecified urinary incontinence; I44.60 Unspecified fascicular block; R73.03 Prediabetes; R53.81 Other malaise; R26.2 Difficulty in walking, not elsewhere classified; M19.90 Unspecified osteoarthritis, unspecified site